=== PATIENT | female | born 1950 | race Caucasian/White ===

== ENCOUNTER 2021-09-08 12:59 | Inpatient (IN) | payer MEDICARE, OTHER ==
[~2021-09-08] VITALS: Ht 154.9 cm; Wt 82.1 kg
[~2021-09-08 12:59] MED LIST: K-DUR TAB 20 M20 MEQ PO; NORCO 7.5-3251 EACH PO
[2021-09-08 13:57] LABS: HEMOGLOBIN 12.6 gm/dl (12.3-15.3); RED BLOOD COUNT 4.2 M/UL (4.00-5.10)
[2021-09-08 15:59] LABS: BUN/CREATININE RATIO 14 (0-10)
[2021-09-08] MEDS ORDERED: ATORVASTATIN CA40 MG PO (17:29)
[2021-09-08] MEDS ORDERED: CARAFATE 1 GM TA1 GM PO (17:30)
[2021-09-08] MEDS ORDERED: FOLIC ACID 1 MG1 MG PO (17:30)
[2021-09-08] MEDS ORDERED: DETROL LA4 MG PO (17:30)
[2021-09-08] MEDS ORDERED: ISOSORBIDE MONO30 MG PO (17:31)
[2021-09-08] MEDS ORDERED: POTASSIUM CHLO20 ME2 PO (17:31)
[2021-09-08] MEDS ORDERED: LOPRESSOR 25 MG25 MG PO (17:31)
[2021-09-08] MEDS ORDERED: SYNTHROID50 MCG PO (17:32)
[2021-09-08] MEDS ORDERED: SERTRALINE HCL50 MG PO (17:32)
[2021-09-08] MEDS ORDERED: ALPRAZOLAM1 MG PO (17:33)
[2021-09-08] MEDS ORDERED: VITAMIN D21250 MCG PO (17:33)
[2021-09-08] MEDS ORDERED: ESOMEPRAZOLE MA40 MG PO (17:33)
[2021-09-08] MEDS ORDERED: MELOXICAM15 MG PO (17:34)
[2021-09-08] MEDS ORDERED: FUROSEMIDE40 MG PO (17:34)
[2021-09-08] MEDS ORDERED: NITROGLYCERIN0.4 MG SL (17:34)
[2021-09-08] MEDS ORDERED: ASPIRIN EC81 MG PO (19:12)
[2021-09-09 07:29] LABS: HEMOGLOBIN 11.1 gm/dl (12.3-15.3); RED BLOOD COUNT 3.78 M/UL (4.00-5.10); WHITE BLOOD COUNT 6.8 K/UL (4.5-11.0)
--- NOTE | 2021-09-09 14:19 | NUR ---
per dr. nails, no notification for critical ckmb needed unless trending upward.
[2021-09-10 04:28] LABS: BUN/CREATININE RATIO 13 (0-10)
[2021-09-12 07:56] LABS: BUN/CREATININE RATIO 10 (0-10)
[2021-09-13 06:48] LABS: HEMOGLOBIN 11.4 gm/dl (12.3-15.3); RED BLOOD COUNT 3.95 M/UL (4.00-5.10); WHITE BLOOD COUNT 5.7 K/UL (4.5-11.0)
[2021-09-13 07:35] LABS: BUN/CREATININE RATIO 13 (0-10)
[2021-09-13] MEDS ORDERED: OMNICEF 300 MG300 MG PO (09:35)
[2021-09-13] MEDS ORDERED: ALPRAZOLAM1 MG PO (09:36)
== END 2021-09-13 12:20 | DRG 558 ==
LOC: ER1 12:59 → CDU 17:09 → M/S 20:50
PROVIDERS: Family Medicine; Internal Medicine; ADMIT Family Medicine
DX: M62.82 Rhabdomyolysis (principal); G72.0 Drug-induced myopathy; N39.0 Urinary tract infection, site not specified; Z20.822 Contact with and (suspected) exposure to COVID-19; W18.30XA Fall on same level, unspecified, initial encounter; M19.90 Unspecified osteoarthritis, unspecified site; I11.0 Hypertensive heart disease with heart failure; K21.9 Gastro-esophageal reflux disease without esophagitis; Z96.652 Presence of left artificial knee joint; I25.10 Atherosclerotic heart disease of native coronary artery without angina pectoris; E78.5 Hyperlipidemia, unspecified; E66.9 Obesity, unspecified; M51.36 Other intervertebral disc degeneration, lumbar region; R07.89 Other chest pain; B96.20 Unspecified Escherichia coli [E. coli] as the cause of diseases classified elsewhere; T49.0X5A Adverse effect of local antifungal, anti-infective and anti-inflammatory drugs, initial encounter; Y93.89 Activity, other specified; Y92.89 Other specified places as the place of occurrence of the external cause; Y99.8 Other external cause status; Z95.1 Presence of aortocoronary bypass graft; Z95.810 Presence of automatic (implantable) cardiac defibrillator; Z82.49 Family history of ischemic heart disease and other diseases of the circulatory system; Z82.5 Family history of asthma and other chronic lower respiratory diseases
CPT/HCPCS: 36415; 70450; 71045; 72125; 72128; 72131; 80048; 80053; 81001; 82550; 82553; 83605; 83874; 84439; 84443; 84484; 85025; 85027; 87077; 87086; 87186; 93005; 96374; 96376; 97110; 97110-GP-CQ; 97116-GP-CQ; 97162; 97166; 97530; 97530-GP-CQ; 99285; G0378; J0696; J7030; U0002